=== PATIENT | female | born 1965 | race Caucasian/White ===

== ENCOUNTER → 2016-08-16 | Outpatient (CLI) | payer OTHER ==
--- NOTE | 2016-08-16 16:15 | RADRPT ---
PROCEDURE: Left knee radiographs. CLINICAL INDICATION: Left knee pain. TECHNIQUE: Three views. Weight bearing. Frontal, lateral, and patellar view. COMPARISON: No prior studies are available for comparison. FINDINGS: There is no fracture or dislocation. The soft tissues are normal. Articular surfaces are intact. There is no lytic or blastic lesion. There is no radiopaque foreign body. IMPRESSION: 1. Normal images of the left knee. RPTAT: QQ .Desmond Guerin MD, MD Date Time Electronically viewed and signed by .Desmond Guerin MD, MD on 08/16/2016 16:15 .R/
--- NOTE | 2016-08-17 07:33 | HKNOTE ---
DATE OF SERVICE: 08/16/2016 MAIN COMPLAINT: Pain in the left knee. HISTORY OF MAIN COMPLAINT: The patient is a 51-year-old female who complains of pain in her left kn ee. She developed pain about 2-1/2 years ago when she was doing a stepping box as an exercise maneu miesha. Since then, she had pain along the IT band. Two days ago, she got out of a car and had severe pain in the knee. She could hardly walk. She saw a chiropractor who said that she might have a to rn meniscus. PRESENT COMPLAINTS: The pain in her left knee suddenly became very much better this morning. The p ain did return about an hour later. and she could hardly walk again. By the time she got to my offi ce, the knee felt "normal." The pain is described as being moderate and aggravated at walking, weig htbearing, and stair climbing. She does not get rest pain. She gets pain at night "only if I move a certain way." The patient has had a history of problems with her lower back. She had chiropracti c treatments. She has had an MRI scan of the spine. She does complain of swelling in the knee. When she is in severe pain, she cannot extend the knee f ully. Occasionally the knee feels unstable and it feels as though she is going to fall. On a level surface, she can walk as far as she likes except when one of these pain episodes return. She also then limps. She has no difficulty clipping her toenails and tying her shoelaces. SPORTING ACTIVITIES: Yoga, spinning, Pilates, running, and weight lifting. PAST ORTHOPEDIC HISTORY: PREVIOUS ORTHOPEDIC OPERATIONS: None. PRIOR CORTISONE INTAKE: None. ALCOHOL INTAKE: None. OTHER JOINT PROBLEMS: None. BLOOD TESTS FOR ARTHRITIS: None. PRIOR INJURIES TO HIPS OR KNEES: None. 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 Obviously, all of her activities are st ressful to her knee. PAST MEDICAL HISTORY: Negative. PAST SURGICAL HISTORY: section 07/28/2003. ALLERGIES: MORPHINE. MEDICATIONS: All vitamins. FAMILY HISTORY: Noncontributory. SYSTEMS REVIEW: Prone to skipping heartbeats, otherwise negative. HABITS: The patient does not smoke or drink alcoholic beverages. PHYSICAL EXAMINATION: GENERAL: The patient is an extremely fit looking and an extremely youthful 51-year-old female. Her gait is normal. She walks without a walking aid. VITAL SIGNS: Height 5 feet 6 inches, weight 219 pounds. Blood pressure 105/60, temperature 98.8. HIPS: Both hips have full range of motion without pain. LEFT KNEE: The left knee shows normal alignment. Active and passive extension lacks 5 degrees and i s markedly painful. Active and passive flexion lacks 25 degrees. The medial and lateral collateral l igaments and cruciate ligaments are intact. Nick test is negative. There is no scarring, crepitus , or cysts. The patella tracks normally. There is no tenderness on the articular surface of the yadav lla or in the patellar groove. The Q angle is normal. She is tender over the medial joint line. Th ere is 1+ effusion. IMAGING: Plain x-rays of the left knee obtained at the [facility] (3 views) are entirely normal. DISCUSSION: The patient is advised that these are the classic symptoms of a torn meniscus. Swellin g, instability. and locking are the cardinal symptoms. The intermittent nature of the pain is described to the patient as being due to a torn meniscus jamm ing into the knee and then getting out of the way during times of quiescence. DIAGNOSIS: Internal derangement of the left knee. MANAGEMENT: The patient is being sent for an MRI scan of the left knee. She will be called with ye garrido results. Dictated By: TI MAYS/MARTIN Conf#: [id number] DID#: [id number]
== END | disposition home or self-care (01) ==
LOC: HKI 15:47
DX: M23.92 Unspecified internal derangement of left knee (principal)
CPT/HCPCS: 73562; G0463